=== PATIENT | female | born 1955 ===

== ENCOUNTER 2021-10-18 10:18 | Emergency (ER) | payer OTHER ==
[~2021-10-18] VITALS: Ht 157.5 cm; Wt 92.5 kg
[~2021-10-18 10:18] MED LIST: ANAPROX275 MG; ATIVAN2 M1; CATAFLAM50 MG PO; IMODIUM A-D2 MG PO; PEPCID40 MG PO; ZOFRAN4 MG PO
[2021-10-18] MEDS ORDERED: LEVOTHYROXINE25 MCG PO (10:28)
[2021-10-18] MEDS ORDERED: LIPITOR20 MG PO (10:28)
[2021-10-18] MEDS ORDERED: KETO10TA2 PO (10:28)
[2021-10-18] MEDS ORDERED: DICLOFENAC POTA50 MG PO (14:39)
[2021-10-18] MEDS ORDERED: MUCINEX DM ER1 EAC1 PO (14:39)
[2021-10-18] MEDS ORDERED: SYMBICORT 16010.2 GM IH (14:39)
[2021-10-18] MEDS ORDERED: BENZONATATE100 MG PO (14:39)
== END 2021-10-18 14:46 ==
LOC: ER 10:18
DX: U07.1 COVID-19 (principal); J20.8 Acute bronchitis due to other specified organisms; Z88.6 Allergy status to analgesic agent

== ENCOUNTER 2021-10-20 08:00 | Outpatient (CLI) | payer OTHER ==
[~2021-10-20 08:00] MED LIST changes: +BENZONATATE100 MG PO; +DICLOFENAC POTA50 MG PO; +KETO10TA2 PO; +LEVOTHYROXINE25 MCG PO; +LIPITOR20 MG PO; +MUCINEX DM ER1 EAC1 PO; +SYMBICORT 16010.2 GM IH
== END 2021-10-20 09:00 | disposition home or self-care (01) ==
LOC: ASH CLINIC 08:00
PROVIDERS: ATTEND General Practice
DX: U07.1 COVID-19 (principal); Z23 Encounter for immunization